=== PATIENT | male | born 1995 | race African-American/Black ===

== ENCOUNTER 2023-07-13 19:17 | Emergency (ER) | payer OTHER ==
[~2023-07-13] VITALS: Ht 185.4 cm; Wt 77.1 kg
[2023-07-13 19:58] VITALS: O2SAT 100
[2023-07-13] MEDS ORDERED: IBUPROFEN 600 MG TAB PO STA (20:04)
== END 2023-07-13 21:43 | disposition home or self-care (01) ==
LOC: ER 19:37 → EDSEX 19:37 → ER 21:43
DX: M25.511 Pain in right shoulder (principal); W18.39XA Other fall on same level, initial encounter; Y92.89 Other specified places as the place of occurrence of the external cause; F17.210 Nicotine dependence, cigarettes, uncomplicated
CPT/HCPCS: 99283